=== PATIENT | female | born 1960 | race Caucasian/White ===

== ENCOUNTER 2021-11-19 18:08 | Emergency (ER) | payer OTHER ==
[2021-11-19 18:23] VITALS: BP 138/72
--- NOTE | 2021-11-19 19:02 | ED Physician Documentation ---
PD HPI UPPER EXT INJURY - Stated complaint Stated Complaint: RT WRIST PX/INJ - Chief complaint Chief Complaint: Trauma Ext - History obtained from History obtained from: Patient - Additonal information Additional information: Slip and fall with FOOSH onto her dominant right hand with distal radius pain. She has a scrape on the need to, but that does not hurt and she is walking fine. No other injuries. Review of Systems Constitutional: reports: Reviewed and negative Throat: reports: Reviewed and negative Cardiac: reports: Reviewed and negative Respiratory: reports: Reviewed and negative PD PAST MEDICAL HISTORY - Past Medical History Past Medical History: Yes Cardiovascular: High cholesterol, Arrhythmia Respiratory: None Neuro: None Endocrine/Autoimmune: HyPOthyroidism GI: None CONTINUOUS CHURN [employer]ER: Other : None HEENT: None Psych: Depression, Anxiety Musculoskeletal: None Derm: None - Past Surgical History Past Surgical History: Yes /CONTINUOUS [employer]: Hysterectomy - Present Medications Home Medications: Ambulatory Orders Medication Instructions Recorded Confirmed Escitalopram [Lexapro] 10 mg PO DAILY 11/19/21 11/19/21 Levothyroxine Sodium 137 mcg PO DAILY 11/19/21 11/19/21 Simvastatin [Zocor] 10 mg PO HS 11/19/21 11/19/21 - Allergies Allergies/Adverse Reactions: Allergies Allergy/AdvReac Type Severity Reaction Status Date / Time No Known Drug Allergies Allergy Verified 11/19/21 18:19 - Social History Does the pt smoke?: No Smoking Status: Never smoker Does the pt drink ETOH?: No Does the pt have substance abuse?: No - Immunizations Immunizations are current?: Yes PD ED PE NORMAL - Vitals Vital signs reviewed: Yes - General General: Alert and oriented X 3, No acute distress - Extremities Extremities: Other (Tender over the distal radius but not the snuffbox. No pain with axial loading of the thumb. Some limited range of motion due to pain.) - Neuro Neuro: Alert and oriented X 3, Normal speech Results - Vitals Vitals: Vital Signs - 24 hr 11/19/21 18:20 Temperature 36.5 C Heart Rate 61 Respiratory 18 Rate Blood Pressure 138/72 H O2 Saturation 97 Oxygen O2 Source Room air - Rads (name of study) 4 view x-ray of the right wrist is unremarkable Radiology: EMP read contemporaneously PD MEDICAL DECISION MAKING - ED course ED course: 61-year-old woman with FOOSH injury of the right wrist, tender over the distal radius but not the snuffbox and no pain with axial loading of the thumb so doubt a scaphoid injury. She is placed in a Velcro wrist splint for comfort and she declines pain medication. Departure - Departure Disposition: 01 Home, Self Care Clinical Impression: Right wrist sprain Condition: Good Record reviewed to determine appropriate education?: Yes Instructions: ED Sprain Wrist Comments: If not better over the next week or 2, recheck with your physician for recheck, potential repeat imaging. Return for new or worsening symptoms. Discharge Date/Time: 11/19/21 19:27
--- NOTE | 2021-11-19 19:44 | XRAY Report ---
PROCEDURE: Wrist 4 View RT INDICATIONS: Trauma TECHNIQUE: 4 views of the wrist were acquired. COMPARISON: None. FINDINGS: Bones: No fractures or dislocations. No suspicious bony lesions. Scaphoid view: Scaphoid appears intact. Soft tissues: No suspicious soft tissue calcifications. Mild soft tissue swelling. IMPRESSION: No acute osseous abnormalities. If clinical symptoms persist, a follow-up examination is suggested in 7-10 days. Reviewed by: Didi Gallegos MD on 11/19/2021 7:42 PM PDT Approved by: Didi Gallegos MD on 11/19/2021 7:42 PM PDT Station ID: [id number]
== END 2021-11-19 19:27 | disposition home or self-care (01) ==
LOC: ED 18:08
DX: S63.501A Unspecified sprain of right wrist, initial encounter (principal); W01.0XXA Fall on same level from slipping, tripping and stumbling without subsequent striking against object, initial encounter
CPT/HCPCS: 99282; 99283